=== PATIENT | female | born 1970 | race Caucasian/White ===

== ENCOUNTER 2018-02-13 16:41 | Inpatient (IN) | payer MEDICAID ==
[2018-02-13 18:12] LABS: ADD MAN DIFF? NO
[2018-02-13 18:18] LABS: WHITE BLOOD COUNT 7.5 10^3/ul (4.8-10.8)
[2018-02-13 18:18] LABS: BASOPHIL # 0.1 10^3/ul (0.0-0.1); BASOPHILS % 0.8 % (0.0-2.0); EOSINOPHILS # 0.2 10^3/ul (0.0-0.5); EOSINOPHILS % 2.3 % (0.0-7.0); HEMATOCRIT 40.4 % (37.0-47.0); HEMOGLOBIN 13.6 g/dl (12.0-16.0); LYMPHOCYTES # 2.3 10^3/ul (0.8-2.9); LYMPHOCYTES % 30.7 % (15.0-51.0); MEAN CORPUSCULAR HEMOGLOBIN 31.1 pg (29.0-33.0); MEAN CORPUSCULAR HGB CONC 33.7 g/dl (32.0-37.0); MEAN CORPUSCULAR VOLUME 92.2 fl (82.0-101.0); MEAN PLATELET VOLUME 10.8 fl (7.4-10.4); MONOCYTE # 0.9 10^3/ul (0.3-0.9); MONOCYTES % 12.1 % (0.0-11.0); NEUTROPHIL # 4.1 10^3/ul (1.6-7.5); NEUTROPHILS % 53.8 % (39.0-77.0); PLATELET COUNT 270 10^3/UL (140-415); RED BLOOD COUNT 4.38 10^6/ul (4.20-5.40); RED CELL DISTRIBUTION WIDTH 15.6 % (11.5-14.5)
[2018-02-13 18:22] LABS: ADD UMIC NO; UR ASCORBIC ACID NEGATIVE (NEGATIVE); UR BILIRUBIN (Dip) NEGATIVE (NEGATIVE); UR BLOOD (Dip) NEGATIVE (NEGATIVE); UR CLARITY CLEAR (CLEAR); UR COLOR YELLOW (YELLOW); UR GLUCOSE (Dip) NEGATIVE (NEGATIVE); UR KETONES (Dip) NEGATIVE (NEGATIVE); UR LEUKOCYTE ESTERASE (Dip) NEGATIVE Leu/ul (NEGATIVE); UR NITRITE (Dip) NEGATIVE (NEGATIVE); UR SPECIFIC GRAVITY (Dip) 1.002 (1.003-1.030); UR TOTAL PROTEIN (Dip) NEGATIVE (NEGATIVE); UR UROBILINOGEN (Dip) NEGATIVE (NEGATIVE)
[2018-02-13 18:41] LABS: ALBUMIN/GLOBULIN RATIO 1.11; ALKALINE PHOSPHATASE 224 IU/L (42-121); ANION GAP 15 (8-16); BILIRUBIN,INDIRECT 1.5 mg/dl (0-1.1); BILIRUBIN,TOTAL 3.7 mg/dl (0.2-1.3); BLOOD UREA NITROGEN 9 mg/dl (7-20); CALCIUM 9.2 mg/dl (8.4-10.2); CARBON DIOXIDE 29 mmol/L (21-31); CHLORIDE 100 mmol/L (97-110); CREATININE 0.58 mg/dl (0.44-1.00); GLUCOSE 97 mg/dl (70-220); LIPASE 128 U/L (23-300); POTASSIUM 4.4 mmol/L (3.5-5.1); SODIUM 140 mmol/L (135-144); TOTAL PROTEIN 7.6 g/dl (6.1-8.1)
[2018-02-13 18:50] LABS: ALANINE AMINOTRANSFERASE 1286 IU/L (13-69); ASPARTATE AMINO TRANSFERASE 1345 IU/L (15-46)
[2018-02-13 19:07] LABS: HEMOGLOBIN A1C 4.7 % (0-5.9)
[2018-02-13 20:14] LABS: HAAIG REFLEX REFLEX FILED
[2018-02-13 21:05] LABS: HEPATITIS B SURFACE ANTIGEN NEGATIVE (NEGATIVE)
[2018-02-13 21:24] LABS: HEPATITIS B CORE ANTIBODY NEGATIVE (NEGATIVE); HEPATITIS C VIRAL ANTIBODY NEGATIVE (NEGATIVE)
[2018-02-13] MEDS: SOD CHLORIDE 0.9% 1,000 ML IV ×2 (23:42)
[2018-02-14] MEDS ORDERED: ONDANSETRON 4 MG INJ IV
[2018-02-14] MEDS ORDERED: DOCUSATE SODIUM 100 MG CAP PO
[2018-02-14] MEDS ORDERED: NACL 0.9% 3 ML SYG IV
[2018-02-14] MEDS ORDERED: morphine 2 MG INJ IV
[2018-02-14] MEDS ORDERED: ACETAMINOPHEN 325 MG TAB PO
[2018-02-14] MEDS: SOD CHLORIDE 0.9% 1,000 ML IV ×3 (00:56→11:33)
[2018-02-14 01:31] LABS: ACETAMINOPHEN < 10.0 ug/ml (10.0-30.0); SALICYLATE < 1.0 mg/dl (5.0-30.0)
[2018-02-14 01:39] LABS: ETHANOL < 10.0 mg/dl
[2018-02-14 03:14] LABS: HEPATITIS B SURFACE ANTIBODY NEGATIVE (NEGATIVE)
[2018-02-14 03:32] LABS: AMPHETAMINE/METHAMPHETAMINE Negative (NEGATIVE); BARBITURATES Negative (NEGATIVE); BENZODIAZEPINES Negative (NEGATIVE); CANNABINOIDS Negative (NEGATIVE); COCAINE Negative (NEGATIVE); OPIATES Negative (NEGATIVE)
[2018-02-14 05:37] LABS: ADD MAN DIFF? NO
[2018-02-14 05:45] LABS: BASOPHIL # 0.1 10^3/ul (0.0-0.1); BASOPHILS % 0.8 % (0.0-2.0); EOSINOPHILS # 0.2 10^3/ul (0.0-0.5); EOSINOPHILS % 2.3 % (0.0-7.0); HEMATOCRIT 38.1 % (37.0-47.0); HEMOGLOBIN 12.6 g/dl (12.0-16.0); LYMPHOCYTES # 2.3 10^3/ul (0.8-2.9); LYMPHOCYTES % 35.4 % (15.0-51.0); MEAN CORPUSCULAR HEMOGLOBIN 30.7 pg (29.0-33.0); MEAN CORPUSCULAR HGB CONC 33.1 g/dl (32.0-37.0); MEAN CORPUSCULAR VOLUME 92.9 fl (82.0-101.0); MEAN PLATELET VOLUME 11.5 fl (7.4-10.4); MONOCYTE # 0.8 10^3/ul (0.3-0.9); MONOCYTES % 12.5 % (0.0-11.0); NEUTROPHIL # 3.2 10^3/ul (1.6-7.5); NEUTROPHILS % 48.8 % (39.0-77.0); PLATELET COUNT 245 10^3/UL (140-415); RED CELL DISTRIBUTION WIDTH 15.6 % (11.5-14.5)
[2018-02-14 05:45] LABS: WHITE BLOOD COUNT 6.5 10^3/ul (4.8-10.8)
[2018-02-14 06:34] LABS: ALBUMIN 3.1 g/dl (3.3-4.9); ALBUMIN/GLOBULIN RATIO 0.93; ALKALINE PHOSPHATASE 200 IU/L (42-121); ANION GAP 13 (8-16); BILIRUBIN,INDIRECT 1.9 mg/dl (0-1.1); BILIRUBIN,TOTAL 4.4 mg/dl (0.2-1.3); BLOOD UREA NITROGEN 6 mg/dl (7-20); CALCIUM 8.4 mg/dl (8.4-10.2); CARBON DIOXIDE 28 mmol/L (21-31); CHLORIDE 105 mmol/L (97-110); CHOL/HDL RATIO 5.6 RATIO; CHOLESTEROL 124 mg/dl (100-200); CREATININE 0.48 mg/dl (0.44-1.00); GLUCOSE 77 mg/dl (70-220); HDL CHOLESTEROL 22 mg/dl (34-88); LDL CHOLESTEROL,CALCULATED 85 mg/dl; POTASSIUM 3.6 mmol/L (3.5-5.1); SODIUM 142 mmol/L (135-144); TOTAL PROTEIN 6.4 g/dl (6.1-8.1); TRIGLYCERIDES 85 mg/dl (0-149)
[2018-02-14 06:43] LABS: ALANINE AMINOTRANSFERASE 1077 IU/L (13-69); ASPARTATE AMINO TRANSFERASE 1194 IU/L (15-46)
[2018-02-14 07:58] LABS: HEMOGLOBIN A1C 4.7 % (0-5.9)
[2018-02-14 12:46] LABS: ACETAMINOPHEN < 10.0 ug/ml (10.0-30.0)
[2018-02-14 13:39] LABS: INR 1.22; PROTIME 15.6 Sec (11.9-14.9); PT RATIO 1.2
[2018-02-15] MEDS: SOD CHLORIDE 0.9% 1,000 ML IV ×2 (02:33→04:18)
[2018-02-15 05:39] LABS: INR 1.19; PROTIME 15.3 Sec (11.9-14.9); PT RATIO 1.2
[2018-02-15 05:44] LABS: ALBUMIN 3.1 g/dl (3.3-4.9); ALBUMIN/GLOBULIN RATIO 0.83; ALKALINE PHOSPHATASE 203 IU/L (42-121); ANION GAP 11 (8-16); BILIRUBIN,INDIRECT 1.8 mg/dl (0-1.1); BILIRUBIN,TOTAL 4.8 mg/dl (0.2-1.3); BLOOD UREA NITROGEN 6 mg/dl (7-20); CALCIUM 8.4 mg/dl (8.4-10.2); CARBON DIOXIDE 28 mmol/L (21-31); CHLORIDE 107 mmol/L (97-110); CREATININE 0.55 mg/dl (0.44-1.00); GLUCOSE 100 mg/dl (70-220); POTASSIUM 3.8 mmol/L (3.5-5.1); SODIUM 142 mmol/L (135-144); TOTAL PROTEIN 6.8 g/dl (6.1-8.1)
[2018-02-15 05:57] LABS: ALANINE AMINOTRANSFERASE 1054 IU/L (13-69); ASPARTATE AMINO TRANSFERASE 1108 IU/L (15-46)
[2018-02-16 15:19] LABS: ALKALINE PHOSPHATASE 200 IU/L (42-121); ANION GAP 14 (8-16); BILIRUBIN,INDIRECT 1.9 mg/dl (0-1.1); BLOOD UREA NITROGEN 6 mg/dl (7-20); CARBON DIOXIDE 29 mmol/L (21-31); CHLORIDE 103 mmol/L (97-110); CREATININE 0.53 mg/dl (0.44-1.00); GLUCOSE 103 mg/dl (70-220); POTASSIUM 3.9 mmol/L (3.5-5.1); SODIUM 142 mmol/L (135-144)
[2018-02-16 15:20] LABS: ALBUMIN 3.5 g/dl (3.3-4.9); ALBUMIN/GLOBULIN RATIO 0.87; BILIRUBIN,TOTAL 4.7 mg/dl (0.2-1.3); TOTAL PROTEIN 7.5 g/dl (6.1-8.1)
[2018-02-16 15:29] LABS: ALANINE AMINOTRANSFERASE 1096 IU/L (13-69); ASPARTATE AMINO TRANSFERASE 1224 IU/L (15-46)
[2018-02-17 06:21] LABS: ALBUMIN 3.3 g/dl (3.3-4.9); ALBUMIN/GLOBULIN RATIO 0.97; ALKALINE PHOSPHATASE 199 IU/L (42-121); ANION GAP 13 (8-16); BILIRUBIN,TOTAL 5.2 mg/dl (0.2-1.3); BLOOD UREA NITROGEN 6 mg/dl (7-20); CALCIUM 8.9 mg/dl (8.4-10.2); CARBON DIOXIDE 30 mmol/L (21-31); CHLORIDE 101 mmol/L (97-110); CREATININE 0.53 mg/dl (0.44-1.00); GLUCOSE 79 mg/dl (70-220); SODIUM 140 mmol/L (135-144); TOTAL PROTEIN 6.7 g/dl (6.1-8.1)
[2018-02-17 06:28] LABS: ASPARTATE AMINO TRANSFERASE 1266 IU/L (15-46)
[2018-02-17 06:30] LABS: ALANINE AMINOTRANSFERASE 1086 IU/L (13-69)
[2018-02-18 05:40] LABS: INR 1.19; PROTIME 15.3 Sec (11.9-14.9); PT RATIO 1.2
[2018-02-18 05:46] LABS: ALANINE AMINOTRANSFERASE 990 IU/L (13-69); ALBUMIN 3.4 g/dl (3.3-4.9); ALBUMIN/GLOBULIN RATIO 0.85; ALKALINE PHOSPHATASE 210 IU/L (42-121); ANION GAP 11 (8-16); BILIRUBIN,INDIRECT 2.2 mg/dl (0-1.1); BILIRUBIN,TOTAL 5.2 mg/dl (0.2-1.3); BLOOD UREA NITROGEN 7 mg/dl (7-20); CARBON DIOXIDE 29 mmol/L (21-31); CHLORIDE 107 mmol/L (97-110); GLUCOSE 96 mg/dl (70-220); POTASSIUM 3.5 mmol/L (3.5-5.1); SODIUM 143 mmol/L (135-144); TOTAL PROTEIN 7.4 g/dl (6.1-8.1)
[2018-02-18 05:56] LABS: ASPARTATE AMINO TRANSFERASE 1175 IU/L (15-46)
[2018-02-18] MEDS: BISACODYL (EC) 5 MG TAB PO (06:29)
[2018-02-18 12:42] LABS: MITOCHONDRIAL TB NEGATIVE (NEGATIVE); SMOOTH MUSCLE AB SCREEN NEGATIVE (NEGATIVE)
[2018-02-19 07:15] LABS: ALANINE AMINOTRANSFERASE 944 IU/L (13-69); ALBUMIN 3.5 g/dl (3.3-4.9); ALBUMIN/GLOBULIN RATIO 0.92; ALKALINE PHOSPHATASE 204 IU/L (42-121); ANION GAP 11 (8-16); BILIRUBIN,INDIRECT 2.4 mg/dl (0-1.1); BILIRUBIN,TOTAL 5.2 mg/dl (0.2-1.3); BLOOD UREA NITROGEN 7 mg/dl (7-20); CALCIUM 9.1 mg/dl (8.4-10.2); CARBON DIOXIDE 29 mmol/L (21-31); CHLORIDE 105 mmol/L (97-110); CREATININE 0.53 mg/dl (0.44-1.00); GLUCOSE 79 mg/dl (70-220); SODIUM 141 mmol/L (135-144); TOTAL PROTEIN 7.3 g/dl (6.1-8.1)
[2018-02-19 07:48] LABS: ASPARTATE AMINO TRANSFERASE 1123 IU/L (15-46)
[2018-02-19] MEDS: BARIUM SULF 2% 450 ML BTL (BERRY SMOOTHIE) PO (11:31)
[2018-02-19] MEDS ORDERED: IOHEXOL 100 ML (13:24)
[2018-02-19] MEDS ORDERED: IOHEXOL 350MG/ML 50 ML BTL (13:24)
[2018-02-19] MEDS ORDERED: SOD CHLORIDE 0.9% 100 ML (13:24)
[2018-02-20] MEDS: morphine LIQ (10 MG/5 ML) CUP PO (02:01)
[2018-02-20 07:09] LABS: ALANINE AMINOTRANSFERASE 852 IU/L (13-69); ALBUMIN 3.3 g/dl (3.3-4.9); ALBUMIN/GLOBULIN RATIO 0.91; ALKALINE PHOSPHATASE 174 IU/L (42-121); ANION GAP 13 (8-16); BILIRUBIN,INDIRECT 2.4 mg/dl (0-1.1); BILIRUBIN,TOTAL 4.7 mg/dl (0.2-1.3); BLOOD UREA NITROGEN 7 mg/dl (7-20); CARBON DIOXIDE 29 mmol/L (21-31); CHLORIDE 103 mmol/L (97-110); CREATININE 0.51 mg/dl (0.44-1.00); GLUCOSE 85 mg/dl (70-220); POTASSIUM 3.5 mmol/L (3.5-5.1); SODIUM 141 mmol/L (135-144); TOTAL PROTEIN 6.9 g/dl (6.1-8.1)
[2018-02-20 07:32] LABS: ASPARTATE AMINO TRANSFERASE 957 IU/L (15-46)
[2018-02-20 14:44] LABS: INR 1.18; PROTIME 15.2 Sec (11.9-14.9); PT RATIO 1.2
[2018-02-21 05:33] LABS: ALANINE AMINOTRANSFERASE 874 IU/L (13-69); ALBUMIN 3.6 g/dl (3.3-4.9); ALBUMIN/GLOBULIN RATIO 0.94; ALKALINE PHOSPHATASE 195 IU/L (42-121); ANION GAP 13 (8-16); BILIRUBIN,INDIRECT 2.2 mg/dl (0-1.1); BILIRUBIN,TOTAL 4.4 mg/dl (0.2-1.3); BLOOD UREA NITROGEN 7 mg/dl (7-20); CARBON DIOXIDE 31 mmol/L (21-31); CHLORIDE 101 mmol/L (97-110); CREATININE 0.49 mg/dl (0.44-1.00); GLUCOSE 86 mg/dl (70-220); POTASSIUM 3.5 mmol/L (3.5-5.1); SODIUM 141 mmol/L (135-144); TOTAL PROTEIN 7.4 g/dl (6.1-8.1)
[2018-02-21 05:40] LABS: INR 1.21; PROTIME 15.5 Sec (11.9-14.9); PT RATIO 1.2
[2018-02-21 05:54] LABS: ASPARTATE AMINO TRANSFERASE 951 IU/L (15-46)
[2018-02-21] MEDS: LIDOCAINE 1% (MDV) 10 ML INJ (08:44)
== END 2018-02-21 18:30 | disposition home or self-care (01) | DRG 443 ==
LOC: MS1 22:23 → FTE 16:41
PROC: 0FB13ZX Excision of Right Lobe Liver, Percutaneous Approach, Diagnostic (ICD-10-PCS; principal; 2018-02-21)
DX: K72.00 Acute and subacute hepatic failure without coma (principal); E66.9 Obesity, unspecified; Z68.39 Body mass index [BMI] 39.0-39.9, adult; K76.0 Fatty (change of) liver, not elsewhere classified; R16.1 Splenomegaly, not elsewhere classified
CPT/HCPCS: 36415; 71045; 74176; 74178; 74181; 76705; 76942; 80053; 80061; 80307; 81003; 81025; 82105; 82787; 83036; 83690; 83735; 84443; 85025; 85610; 86038; 86255; 86704; 86706; 86708; 86709; 86803; 87340; 87496; 88307; 88313; 99285-25

== ENCOUNTER 2019-03-21 11:02 | Day surgery (SDC) | payer OTHER, MEDICAID ==
[2019-03-21] MEDS ORDERED: PROPOFOL 40 ML (16:22)
[2019-03-21] MEDS ORDERED: LIDOCAINE 2% (SDV) 5 ML INJ (16:22)
== END 2019-03-21 17:59 | disposition home or self-care (01) ==
LOC: GIL 11:02
DX: K29.50 Unspecified chronic gastritis without bleeding (principal); I10 Essential (primary) hypertension
CPT/HCPCS: 43239; 84703; 88305; 88312

== ENCOUNTER 2019-04-13 07:17 | Day surgery (SDC) | payer OTHER ==
[2019-04-13] MEDS ORDERED: SOD CHLORIDE 0.45% 1,000 ML IV (08:00)
[2019-04-13 08:42] LABS: ADD MAN DIFF? NO
[2019-04-13 08:47] LABS: WHITE BLOOD COUNT 5.7 10^3/ul (4.8-10.8)
[2019-04-13 08:47] LABS: BASOPHILS % 0.5 % (0.0-2.0); EOSINOPHILS # 0.1 10^3/ul (0.0-0.5); EOSINOPHILS % 1.6 % (0.0-7.0); HEMATOCRIT 38.8 % (37.0-47.0); HEMOGLOBIN 12.9 g/dl (12.0-16.0); LYMPHOCYTES # 1.7 10^3/ul (0.8-2.9); MEAN CORPUSCULAR HEMOGLOBIN 30.4 pg (29.0-33.0); MEAN CORPUSCULAR HGB CONC 33.2 g/dl (32.0-37.0); MEAN CORPUSCULAR VOLUME 91.5 fl (82.0-101.0); MEAN PLATELET VOLUME 11.1 fl (7.4-10.4); MONOCYTE # 0.7 10^3/ul (0.3-0.9); MONOCYTES % 11.6 % (0.0-11.0); NEUTROPHIL # 3.2 10^3/ul (1.6-7.5); NEUTROPHILS % 56.9 % (39.0-77.0); PLATELET COUNT 127 10^3/UL (140-415); RED BLOOD COUNT 4.24 10^6/ul (4.20-5.40); RED CELL DISTRIBUTION WIDTH 13.9 % (11.5-14.5)
[2019-04-13] MEDS: FAMOTIDINE 20 MG TAB PO (08:55)
[2019-04-13] MEDS: DIAZEPAM 5 MG TAB PO (08:55)
[2019-04-13] MEDS: DIPHENHYDRAMINE 50 MG CAP PO (08:55)
[2019-04-13 09:03] LABS: ANION GAP 4 (5-13); BLOOD UREA NITROGEN 8 mg/dl (7-20); CARBON DIOXIDE 27 mmol/L (21-31); CHLORIDE 106 mmol/L (97-110); CHOL/HDL RATIO 2.7 RATIO; CHOLESTEROL 192 mg/dl (100-200); CREATININE 0.53 mg/dl (0.44-1.00); Estimated GFR > 60 mL/min (>60); GLUCOSE 93 mg/dl (70-220); HDL CHOLESTEROL 70 mg/dl (34-88); LDL CHOLESTEROL,CALCULATED 109 mg/dl; SODIUM 137 mmol/L (135-144); TRIGLYCERIDES 67 mg/dl (0-149)
[2019-04-13 09:04] LABS: POTASSIUM 3.2 mmol/L (3.5-5.1)
[2019-04-13 09:10] LABS: INR 0.98; PROTIME 13.1 Sec (11.9-14.9)
[2019-04-13 09:11] LABS: PARTIAL THROMBOPLASTIN TIME 30.9 Sec (23.0-35.0)
[2019-04-13] MEDS ORDERED: MIDAZOLAM 1 MG/ML 2 ML INJ (09:26)
[2019-04-13] MEDS ORDERED: VERAPAMIL 5 MG INJ (09:26)
[2019-04-13] MEDS ORDERED: FENTAnyl 50 MCG/ML VIAL (09:26)
[2019-04-13] MEDS ORDERED: IODIXANOL LOCM 100 ML BTL (09:26)
[2019-04-13] MEDS ORDERED: NITROGLYCERIN (IC) 100 MCG/ML INJ (09:26)
[2019-04-13] MEDS ORDERED: HEPARIN 1000 UNITS/ML 10 ML INJ (09:26)
[2019-04-13] MEDS ORDERED: LIDOCAINE 1% (MDV) 20 ML INJ (09:26)
[2019-04-13] MEDS ORDERED: ACETAMINOPHEN 325 MG TAB PO (11:00)
[2019-04-13] MEDS ORDERED: morphine 2 MG INJ IV (11:00)
[2019-04-13] MEDS ORDERED: AL HYDROX/MG HYDROX/SIMETH 30 ML CUP PO (11:00)
[2019-04-13] MEDS ORDERED: ONDANSETRON 4 MG INJ IV (11:00)
[2019-04-13] MEDS: SOD CHLORIDE 0.9% 1,000 ML IV (11:38)
== END 2019-04-13 16:45 | disposition home or self-care (01) ==
LOC: SDS 07:17
DX: I25.10 Atherosclerotic heart disease of native coronary artery without angina pectoris (principal); I10 Essential (primary) hypertension; K21.9 Gastro-esophageal reflux disease without esophagitis
CPT/HCPCS: 71045; 80048; 80061; 84703; 85025; 85610; 85730; 93005; 93458